=== PATIENT | female | born 1960 | race Caucasian/White ===

== ENCOUNTER 2019-06-15 10:21 | Emergency (ER) | payer OTHER, SELFPAY ==
[2019-06-15] VITALS (8 sets, daily range): BP systolic 140–217; BP diastolic 68–104; PULSE 61–79; RESP 14–23; TEMP 36.7; O2SAT 97–100
--- NOTE | 2019-06-15 10:33 | DI.RAD.S_ITS ---
PROCEDURE: XR CHEST 1V INDICATIONS: chest pain TECHNIQUE: One view of the chest was acquired. COMPARISON: None. FINDINGS: Surgical changes and devices: None. Lungs and pleura: Lungs are clear. No pleural effusions or pneumothorax. Mediastinum: Mediastinal contours appear normal. Heart size is normal. Bones and chest wall: No suspicious bony lesions. Overlying soft tissues appear unremarkable. IMPRESSION: Relatively large lung volumes, but this may simply represent an aggressive inspiratory effort. No definite acute disease. Dictated by: Harris Mason M.D. on 06/15/2019 at 11:18 Approved by: Harris Mason M.D. on 06/15/2019 at 11:21
[2019-06-15 11:20] LABS: Add Manual Diff / Slide Review NO; Basophils Absolute Auto 100 /uL (0-100); Basophils Percent Auto 1.2 % (0-2); Eosinophils Absolute Auto 200 /uL (0-450); Eosinophils Percent Auto 3.1 % (2-4); Hemoglobin 14.4 g/dL (12.0-16.0); Lymphocytes Absolute Auto 1400 /uL (1100-4500); Lymphocytes Percent Auto 25.5 % (25-40); Mean Corpuscular HGB Conc 34.3 % (30-36); Mean Corpuscular Hemoglobin 33.4 PG (26-34); Mean Corpuscular Volume 97.2 fL (80-100); Monocytes Absolute Auto 400 /uL (0-900); Monocytes Percent Auto 6.8 % (3-14); Neutrophils Absolute Auto 3400 /uL (1500-7000); Neutrophils Percent Auto 63.4 % (50-75); Platelet Count 293 X10^3/uL (150-400); Red Blood Cell Count 4.33 X10^6/uL (4.0-5.2); White Blood Cell Count 5.3 X10^3/uL (4.5-11.0)
[2019-06-15 11:28] LABS: INR 0.9 (0.9-1.3); Prothrombin Time 10.8 SECONDS (10.1-12.7)
[2019-06-15 11:31] LABS: PTT Partial Thromboplastin Tim 28 SECONDS (26.4-36.2)
[2019-06-15 11:32] LABS: Alanine Aminotransferase 24 IU/L (<35); Albumin 4.8 g/dL (3.5-5.0); Albumin Globulin Ratio 1.7 (1.0-2.8); Alkaline Phosphatase 78 U/L (38-126); Aspartate Aminotransferase 24 IU/L (14-36); BUN Creatinine Ratio 22.1 (6-22); Bilirubin Total 0.5 mg/dL (0.2-1.3); Blood Urea Nitrogen 17 mg/dL (7-17); Calcium 9.7 mg/dL (8.4-10.2); Carbon Dioxide 24 mmol/L (22-32); Chloride 108 mmol/L (98-107); Creatine Kinase 85 U/L (30-135); Estimated Glomerular Filt Rate > 60.0 mL/min (>60); Globulin 2.8 g/dL (1.7-4.1); Glucose 114 mg/dL (70-100); HEMOLYSIS < 15 (0-50); Lipase 43 U/L (23-300); Potassium 3.9 mmol/L (3.4-5.1); Sodium 141 mmol/L (137-145); Total Protein 7.6 g/dL (6.3-8.2)
--- NOTE | 2019-06-15 11:42 | ED.GENADULT ---
HPI - General Adult General Chief complaint: Hypertension Stated complaint: High BP Time Seen by Provider: 06/15/19 10:49 Source: patient Mode of arrival: Ambulatory Limitations: no limitations History of Present Illness HPI narrative: 58-year-old woman presents with complaints of hypertension worse this morning some squeezing chest pressure and when she was out for her walk this morning notice some tingling in her left fingers that did resolve at the end of the walk. She notes that she does have some chronic neck disease and was not particularly surprised by the tingling down the fingers. She states that she and her recently moved to the area, retired and has developed some worsening habits including increasing tobacco and alcohol use. Over the last couple of days she has cut down cigarettes to 3-4 only and has not been drinking any wine at all. She is quite anxious and had seen her new primary care physician last week who wanted her to monitor blood pressures. She has been too anxious to actually do so afraid that she will confirm the diagnosis of hypertension. She notes see she is exquisitely sensitive to all medications Related Data Home Medications Medication Instructions Recorded Confirmed alprazolam [Xanax] 0.5 mg PO BID PRN 06/15/19 06/15/19 Previous Rx's Medication Instructions Recorded metoprolol succinate 12.5 mg PO DAILY #30 tab 06/15/19 Allergies Allergy/AdvReac Type Severity Reaction Status Date / Time No Known Drug Allergies Allergy Verified 06/15/19 11:13 Review of Systems Review of Systems Narrative: She notes that she has gradually increased her alcohol use up to a bottle of wine a day, notes that she is beginning to drink earlier and looking more forward to that 1st drink. She has tried to cut back and over the last couple days has stopped drinking completely a she recognizes signs of high risk screen clancy behaviors. She notes that she had quite a bit of binge drinking when she was younger. Denies ? fever ? cough ? cold ? chills ? dyspnea ? orthopnea ? wheezing ? abdominal pain ? change to bowel or bladder habits ? nausea vomiting ? skin changes ? rashes Patient History Medical History (Updated 06/15/19 @ 14:37 by Emerita Arvizu MD) ADHD (Acute) Anxiety (Acute) Social History Smoking Status: Current every day smoker Smoking Status: Current every day smoker alcohol intake frequency: 0-2 drinks per day Substance Use Type: does not use Exam Narrative Exam Narrative: General: Healthy appearing, in no acute distress. Able to give a complete and coherent history. Well-nourished well-developed HEENT: Moist mucous membranes, normal sclera with reactive pupils, Neck: No JVD, supple Respiratory: Lungs are clear to auscultation, no wheezing no rales no rhonchi. Full and symmetrical air movement Cardiac: Regular rate and rhythm no murmurs no bruits Abdomen: Soft nontender good bowel tones, no flank pain Skin: Warm and dry, no rashes Neurologic: Grossly neurologically intact with no obvious asymmetries or abnormalities Extremities: No trauma, well perfused Psych: Cooperative, appropriate insight and affect Initial Vital Signs Initial Vital Signs: Vital Signs Temperature 98.1 F 06/15/19 10:36 Pulse Rate 72 06/15/19 10:36 Respiratory Rate 18 06/15/19 10:36 Blood Pressure 217/104 H 06/15/19 10:36 Pulse Oximetry 100 06/15/19 10:36 Course Orders Ordered: ED Orders 06/15/19 10:28 EKG-12 Lead Stat 06/15/19 10:33 XR chest 1V Stat 06/15/19 11:15 Complete Blood Count AUTO DIFF Stat Comprehensive Metabolic Panel Stat Lipase Stat Partial Thromboplastin Time Stat Prothrombin Time INR Stat Troponin & CK Cardiac Panel Stat 06/15/19 13:23 Troponin I Stat 06/15/19 13:45 EKG-12 Lead Stat Discontinued Medications Metoprolol Tartrate (Lopressor) 12.5 mg PO NOW ONE Stop: 06/15/19 12:12 Last Admin: 06/15/19 12:35 Dose: 12.5 mg Documented by: CRISTINE Vital Signs Vital signs: Vital Signs - 8 hr 06/15/19 10:36 06/15/19 11:00 06/15/19 12:00 Temperature 98.1 F Pulse Rate 72 78 79 Respiratory Rate 18 23 21 Blood Pressure 217/104 H Blood Pressure [Left Arm] 170/89 H 152/68 H Pulse Oximetry 100 97 06/15/19 12:38 06/15/19 13:21 06/15/19 13:48 Temperature Pulse Rate 77 65 63 Respiratory Rate 18 23 21 Blood Pressure Blood Pressure [Left Arm] 146/79 H 145/77 H 151/92 H Pulse Oximetry 99 98 97 06/15/19 14:16 Temperature Pulse Rate 61 Respiratory Rate 14 Blood Pressure Blood Pressure [Left Arm] 158/102 H Pulse Oximetry 97 Medical Decision Making Medical Records Medical records reviewed: Yes I reviewed the patient's medical records. Lab Data Lab results reviewed: Yes I reviewed the patient's lab results. Result diagrams: 06/15/19 11:15 06/15/19 11:15 Labs: Lab Results 06/15/19 06/15/19 06/15/19 Range/Units 11:15 11:15 11:15 WBC 5.3 (4.5-11.0) X10^3/uL RBC 4.33 (4.0-5.2) X10^6/uL Hgb 14.4 (12.0-16.0) g/dL Hct 42.0 (36-46) % MCV 97.2 (80-100) fL MCH 33.4 (26-34) PG MCHC 34.3 (30-36) % RDW 12.0 (11.6-14.8) % Plt Count 293 (150-400) X10^3/uL Neut % (Auto) 63.4 (50-75) % Lymph % (Auto) 25.5 (25-40) % Sac % (Auto) 6.8 (3-14) % Eos % (Auto) 3.1 (2-4) % Baso % (Auto) 1.2 (0-2) % Neut # (Auto) 3400 (8898-2293) /uL Lymph # (Auto) 1400 (5603-3102) /uL Sac # (Auto) 400 (0-900) /uL Eos # (Auto) 200 (0-450) /uL Baso # (Auto) 100 (0-100) /uL PT 10.8 (10.1-12.7) SECONDS INR 0.9 (0.9-1.3) APTT 28 (26.4-36.2) SECONDS Sodium 141 (137-145) mmol/L Potassium 3.9 (3.4-5.1) mmol/L Chloride 108 H (98-107) mmol/L Carbon Dioxide 24 (22-32) mmol/L BUN 17 (7-17) mg/dL Creatinine 0.77 (0.52-1.04) mg/dL Estimated GFR > 60.0 (>60) mL/min BUN/Creatinine Ratio 22.1 H (6-22) Glucose 114 H (70-100) mg/dL Calcium 9.7 (8.4-10.2) mg/dL Total Bilirubin 0.5 (0.2-1.3) mg/dL AST 24 (14-36) IU/L ALT 24 (<35) IU/L Alkaline Phosphatase 78 (38-126) U/L Total Creatine Kinase 85 (30-135) U/L CK-MB (CK-2) TNP CK-MB (CK-2) Rel Index TNP Troponin I < 0.012 (0.01-0.034) ng/mL Total Protein 7.6 (6.3-8.2) g/dL Albumin 4.8 (3.5-5.0) g/dL Globulin 2.8 (1.7-4.1) g/dL Albumin/Globulin Ratio 1.7 (1.0-2.8) Lipase 43 (23-300) U/L /16/ Range/Units 13:23 WBC (4.5-11.0) X10^3/uL RBC (4.0-5.2) X10^6/uL Hgb (12.0-16.0) g/dL Hct (36-46) % MCV (80-100) fL MCH (26-34) PG MCHC (30-36) % RDW (11.6-14.8) % Plt Count (150-400) X10^3/uL Neut % (Auto) (50-75) % Lymph % (Auto) (25-40) % Sac % (Auto) (3-14) % Eos % (Auto) (2-4) % Baso % (Auto) (0-2) % Neut # (Auto) (3104-5632) /uL Lymph # (Auto) (5639-9840) /uL Sac # (Auto) (0-900) /uL Eos # (Auto) (0-450) /uL Baso # (Auto) (0-100) /uL PT (10.1-12.7) SECONDS INR (0.9-1.3) APTT (26.4-36.2) SECONDS Sodium (137-145) mmol/L Potassium (3.4-5.1) mmol/L Chloride (98-107) mmol/L Carbon Dioxide (22-32) mmol/L BUN (7-17) mg/dL Creatinine (0.52-1.04) mg/dL Estimated GFR (>60) mL/min BUN/Creatinine Ratio (6-22) Glucose (70-100) mg/dL Calcium (8.4-10.2) mg/dL Total Bilirubin (0.2-1.3) mg/dL AST (14-36) IU/L ALT (<35) IU/L Alkaline Phosphatase (38-126) U/L Total Creatine Kinase (30-135) U/L CK-MB (CK-2) CK-MB (CK-2) Rel Index Troponin I < 0.012 (0.01-0.034) ng/mL Total Protein (6.3-8.2) g/dL Albumin (3.5-5.0) g/dL Globulin (1.7-4.1) g/dL Albumin/Globulin Ratio (1.0-2.8) Lipase (23-300) U/L Imaging Data Chest x-ray: Radiologist's Impression: IMPRESSION: Relatively large lung volumes, but this may simply represent an aggressive inspiratory effort. No definite acute disease. Dictated by: Harris Mason M.D. on 06/15/2019 at 11:18 ECG Data Attestation: I personally reviewed and interpreted this ECG as follows: Interpretation: Normal sinus rhythm at a rate of [address] depression lateral/ inferior EKG 2. With blood pressure down nicely time 14 13: Sinus rhythm at a rate of 67. Inferior lateral ST depressions have resolved. [facility] Narrative Medical decision making narrative: Initial tropes and repeat are unremarkable. EKG initially suggested some ST depression inferolaterally. Blood pressures come down with 12.5 mg of metoprolol. I believe that her high blood pressure is actually a diagnosis for her and complicated by her anxiety, increased drinking and tobacco abuse. She stopped drinking working diligently on tobacco continues to exercise regularly and follow a healthy diet. Will ask her to follow-up with her primary care physician regarding high blood pressure and the recently started 12.5 mg of metoprolol at HS as the initial dose made her sleepy No evidence of acute coronary syndrome at this time. She does have a family history of heart disease and in discussion with her primary care physician it may be appropriate to do additional outpatient risk stratification testing regarding her baseline cardiac status Discharge Plan Departure Patient Disposition: Home Clinical Impression: Anxiety, Heart palpitations Hypertension Qualifiers: Hypertension type: essential hypertension Qualified Code(s): I10 - Essential (primary) hypertension Instructions: DI for High Blood Pressure Activity Restrictions/Additional Instructions: Thank you for coming in today Your blood pressure was quite high and with that you were having some symptoms and some minor EKG changes. Your blood pressure is still higher than I would like to see it lower. Your EKGs do suggest that your heart also functions better when your blood pressure is lower. We did test for heart attack and heart attack like syndromes and your negative today. It will make sense to follow-up with your new primary care provider, I am going to suggest that you start metoprolol 12.5 mg at bedtime (this is a very small starting dose and since it made you sleepy, taking it at nighttime make sense) I have spoken with Mei Ross, she would like to see your for a follow up apt at 3:20 on 06/16, [facility]. If you have new or worsening symptoms please feel free to return to the emergency department. Good luck with your no smoking status and at least 3 months of complete alcohol abstinence! Prescriptions: New metoprolol succinate 25 mg tablet extended release 24 hr 12.5 mg PO DAILY Qty: 30 RF: 0 No Action alprazolam [Xanax] 0.5 mg Tablet 0.5 mg PO BID PRN (Reason: Anxiety) RF: 0 Referrals: Mei Ross PA-C [Primary Care Provider] -
[2019-06-15 12:02] LABS: Troponin I < 0.012 ng/mL (0.01-0.034)
[2019-06-15] MEDS: METOPROLOL IR 25 MG TABLET 12.5 MG PO (12:35)
[2019-06-15 14:16] LABS: Troponin I < 0.012 ng/mL (0.01-0.034)
== END 2019-06-15 15:27 | disposition home or self-care (01) ==
PROVIDERS: Emergency Provider Emergency Medicine; PCP Student in an Organized Health Care Education/Training Program
DX: F41.9 Anxiety disorder, unspecified (principal); R00.2 Palpitations; I10 Essential (primary) hypertension; F90.9 Attention-deficit hyperactivity disorder, unspecified type
CPT/HCPCS: 36415; 71045; 80053; 82550; 83690; 84484; 85025; 85610; 85730; 93005; 99284

== ENCOUNTER → 2019-07-23 08:13 | Outpatient (CLI) | payer OTHER, SELFPAY ==
--- NOTE | 2019-07-23 | DI.NM.S_ITS ---
PROCEDURE: NM REMI PERF SPECT REST & STR Rest and exercise myocardial perfusion SPECT with gated imaging and ejection fraction RADIOPHARMACEUTICAL: 25.8 mCi Tc-99m sestamibi IV at rest and 25.1 mCi Tc-99m sestamibi IV at peak exercise. A two day-protocol was performed. INDICATIONS: Other chest pain TECHNIQUE: Radiopharmaceutical was injected at peak stress test, and also at rest. SPECT images were obtained. SPECT myocardial perfusion images were displayed in short axis, horizontal long axis, and vertical long axis views. Gated images were reviewed using [email or web address] software. COMPARISON: None. CARDIAC STRESS: A standard Frederic treadmill exercise tolerance test was performed by the patient under the supervision of an attending staff. The patient exercised for 8 minutes and 47 seconds; functional aerobic impairment (DARION) is -23%. Hemodynamic data: There is normal blood pressure and heart rate response to exercise stress. Patient achieved 87% of maximum predicted heart rate at peak exercise. Symptoms: Patient denied chest pain during exercise. EKG: No diagnostic EKG changes of ischemia; no ectopy. FINDINGS: Raw data: There is good myocardial labeling by radiotracer. No significant motion artifacts. [id number] ratio is 0.36 (normal is less than 0.38 for sestamibi tracer, and less than 0.50 for thallium tracer). Left ventricle function: Gated images demonstrate normal left ventricle wall thickening. No segmental wall motion abnormality. No transient ischemic dilation; TID is 1.03 (normal less than 1.3). The left ventricle resting end-diastolic volume is 67 mL. Left ventricle stress ejection fraction is 72%; normal values are above 45%. Myocardial perfusion: There is normal distribution of activity in the left and right ventricular myocardium. No fixed or reversible perfusion defects. IMPRESSION: Low risk, normal treadmill nuclear stress test. 1) No perfusion evidence of ischemia or infarction. 2) Normal left ventricular size, wall motion, and systolic function (EF post stress 72%). 3) No ECG evidence of ischemia. 4) No angina during the study. 5) Good exercise capacity (10.1METs, DARION -23%). Target heart rate achieved. Appropriate blood pressure response to exercise. 6) No prior nuclear stress test available for comparison. Dictated by: Jose Manuel Jernigan MD on 07/24/2019 at 13:05 Approved by: Jose Manuel Jernigan MD on 07/24/2019 at 13:08
--- NOTE | 2019-07-23 09:31 | PM.TREADMILL ---
Cardiac Stress Test Report Referral & Results Date Patient Seen: 07/23/19 Time Patient Seen: 09:31 Requesting provider: Mei Ross Indication: other chestpain Rest ECG: sinus rhythm Procedure Note: Standard Frederic protocol, 8:47, 8.8 METS Good exercise capacity, DARION -23% Hypertensive at baseline; normal hemodynamic response to exercise No chest pain or anginal symptoms Non significant ST changes ; no ectopy Impression: Normal exercise stress test Nuclear images pending Please note: Actual ECG tracings can be found in the PACS system.
== END ==
PROVIDERS: PCP Student in an Organized Health Care Education/Training Program; Referring Provider Student in an Organized Health Care Education/Training Program; Visit Provider Student in an Organized Health Care Education/Training Program
DX: R07.89 Other chest pain (principal)
CPT/HCPCS: 78452; 93016; 93017; 93018; A9502

== ENCOUNTER → 2020-07-05 11:40 | Outpatient (CLI) | payer OTHER, SELFPAY ==
--- NOTE | 2020-07-05 | DI.RAD.S_ITS ---
PROCEDURE: XR LUMBAR SPINE 2-3V INDICATIONS: LOW BACK PAIN TECHNIQUE: 3 views of the lumbar spine were acquired. COMPARISON: None. FINDINGS: Bones: 5 [id number] vertebrae are present. There is normal bony alignment. No vertebral body compression fractures. No suspicious bony lesions. Soft tissues: Overlying bowel gas pattern is normal. No suspicious soft tissue calcifications. IMPRESSION: Normal for age, source of current low back pain symptoms is not seen. Dictated by: Harris Mason M.D. on 07/05/2020 at 12:46 Approved by: Harris Mason M.D. on 07/05/2020 at 12:47
== END ==
PROVIDERS: PCP Student in an Organized Health Care Education/Training Program; Referring Provider Student in an Organized Health Care Education/Training Program; Visit Provider Student in an Organized Health Care Education/Training Program
DX: M54.5 Low back pain (principal)
CPT/HCPCS: 72100

== ENCOUNTER 2022-01-02 20:32 | Emergency (ER) | payer OTHER, SELFPAY ==
[2022-01-02 20:40] VITALS: BP 151/83; PULSE 88; RESP 17; TEMP 36.5; O2SAT 97; BMI 20.3
[2022-01-02 21:31] LABS: Add Manual Diff / Slide Review NO; Basophils Absolute Auto 0 /uL (0-100); Basophils Percent Auto 0.4 % (0-2); Eosinophils Absolute Auto 200 /uL (0-450); Eosinophils Percent Auto 1.9 % (2-4); Hematocrit 38.8 % (36-46); Hemoglobin 13.5 g/dL (12.0-16.0); Lymphocytes Absolute Auto 1500 /uL (1100-4500); Lymphocytes Percent Auto 13.8 % (25-40); Mean Corpuscular HGB Conc 34.8 % (30-36); Mean Corpuscular Hemoglobin 34.1 PG (26-34); Mean Corpuscular Volume 97.9 fL (80-100); Monocytes Absolute Auto 700 /uL (0-900); Monocytes Percent Auto 6.5 % (3-14); Neutrophils Absolute Auto 8100 /uL (1500-7000); Neutrophils Percent Auto 77.4 % (50-75); Platelet Count 272 X10^3/uL (150-400); Red Blood Cell Count 3.96 X10^6/uL (4.0-5.2); Red Cell Distribution Width 11.9 % (11.6-14.8); White Blood Cell Count 10.5 X10^3/uL (4.5-11.0)
--- NOTE | 2022-01-02 21:39 | DI.CT.S_ITS ---
PROCEDURE: CT ABDOMEN PELVIS W CON INDICATIONS: ab pain with nausea TECHNIQUE: After the administration of IV contrast, axial sections were acquired from the lung bases to the pubic symphysis. Coronal and sagittal reformats were performed. For radiation dose reduction, the following was used: automated exposure control, adjustment of mA and/or kV according to patient size. COMPARISON: None. FINDINGS: Image quality: Excellent. Lung bases: Unremarkable. Heart: Heart is normal in size. ABDOMEN: Liver: No mass lesion. Gallbladder: Within normal limits without calcified gallstones. Biliary ducts: No biliary ductal dilatation. Pancreas: Unremarkable. Spleen: Normal in size. Adrenal Glands: No adrenal nodules. Kidneys and Ureters: No hydronephrosis. Stomach and Bowel: Stomach and small bowel loops are normal in caliber and wall thickness. The appendix is normal in appearance. There is colonic diverticulosis with associated diverticular and segmental colonic wall thickening in the sigmoid colon as well associated pericolonic fat stranding and small amount of adjacent free fluid consistent with acute diverticulitis. No discrete diverticular abscess or macroscopic free air. Mild pericolonic fat stranding extends to the adjacent uterus and bladder without a discrete fistula identified Peritoneum: There is a small amount nonspecific free fluid in the pelvis. No free air. Ventral Wall: No hernia. Abdominal Nodes: No retroperitoneal or mesenteric adenopathy by size criteria. Vessels: Aorta and inferior vena cava are normal in size. PELVIS: Pelvic Organs: Unremarkable. Bladder: Unremarkable. Pelvic Nodes: No enlarged lymph nodes. Miscellaneous: No inguinal hernias are seen. Bones: Visualized osseous structures demonstrate no suspicious focal lesions. IMPRESSION: 1. Sigmoid diverticulitis without evidence of diverticular abscess or macroscopic free air. 2. Peridiverticular fat stranding extends to the uterus and bladder without a discrete fistula identified. Recommend clinical correlation and follow-up. Dictated by: Osmani Batista M.D. on 01/02/2022 at 23:16 Approved by: Osmani Batista M.D. on 01/02/2022 at 23:20
[2022-01-02 21:45] LABS: Alanine Aminotransferase 22 IU/L (<35); Albumin 4.4 g/dL (3.5-5.0); Albumin Globulin Ratio 1.6 (1.0-2.8); Alkaline Phosphatase 57 U/L (38-126); Aspartate Aminotransferase 31 IU/L (14-36); Bilirubin Total 0.9 mg/dL (0.2-1.3); Blood Urea Nitrogen 11 mg/dL (7-17); Carbon Dioxide 29 mmol/L (22-32); Chloride 101 mmol/L (98-107); Estimated Glomerular Filt Rate > 60 mL/min (>60); Globulin 2.8 g/dL (1.7-4.1); Glucose 118 mg/dL (70-100); HEMOLYSIS 22 (0-50); Lipase 28 U/L (23-300); Potassium 3.7 mmol/L (3.4-5.1); Sodium 137 mmol/L (137-145); Total Protein 7.2 g/dL (6.3-8.2)
[2022-01-02 21:59] LABS: Lactate (Lactic Acid) 0.7 mmol/L (0.7-2.1)
[2022-01-02] MEDS: SODIUM CHLORIDE 0.9% 1,000 ML 1000 ML IV (22:05)
[2022-01-02] MEDS: KETOROLAC 30 MG/ML VIAL 15 MG IV (22:08)
[2022-01-02 23:15] VITALS: BP 132/72; PULSE 78; RESP 20; O2SAT 98
--- NOTE | 2022-01-02 23:23 | ED_ITS ---
HPI - Abdominal Pain General Chief Complaint: Abdominal Pain Stated Complaint: severe abd pain Time Seen by Provider: 01/02/22 21:39 Source: patient Mode of arrival: Ambulatory History of Present Illness HPI narrative: Patient is a 61-year-old female without past medical history presenting today with lower abdominal pain. She says it started around 1:00 a.m. it has persisted. She feels like she is having difficulty with bowel movements and passing gas. No prior abdominal surgeries. She occasionally feels nauseous but no vomiting. No chest pain palpitations or shortness of breath. She has no painful or frequent urination. Pain Consistency: constant Severity: moderate Quality: cramping and stabbing Radiation: none Related Data Home Medications Medication Instructions Recorded Confirmed alprazolam 0.5 mg tablet (Xanax) 0.5 mg PO BID PRN Anxiety 06/15/19 06/27/20 Previous Rx's Medication Instructions Recorded metoprolol succinate 25 mg 12.5 mg PO DAILY #30 tabs 06/15/19 tablet,extended release 24 hr ciprofloxacin HCl 500 mg tablet 500 mg PO BID #20 tabs 01/02/22 (Cipro) metronidazole 500 mg tablet 500 mg PO Q8H 10 days #30 tabs 01/02/22 Allergies Allergy/AdvReac Type Severity Reaction Status Date / Time codeine AdvReac Mild makes her Verified 06/27/20 12:46 nervous Review of Systems Review of Systems Narrative: GENERAL: Denies chills, fatigue, malaise, fever, sweats, travel HEENT: Denies sinus pain, ear pain, sore throat, difficulty swallowing, neck pain RESPIRATORY: Denies dyspnea, cough, wheezing, hemoptysis, sputum. CARDIOVASCULAR: Denies chest pain, palpitations, orthopnea, edema GASTROINTESTINAL: see HPI : Denies dysuria, frequency, incontinence, hematuria, urinary retention, flank pain. MUSCULOSKELETAL: Denies weakness, joint pain, or bony pain SKIN: No rash, no erythema, no pruritus NEUROLOGIC: Denies weakness, dizziness, headache, numbness, change in speech, confusion PSYCHIATRIC: No concerning psychosocial issues. 12 point review of systems is negative except for those stated above and HPI Patient History Medical History ADHD Anxiety Social History (Reviewed 01/02/22 @ 23:24 by CORNELL Hilton Smoking Status: Current every day smoker Smoking Status: Current every day smoker alcohol intake frequency: 0-2 drinks per day Substance Use Type: does not use Exam Initial Vital Signs Initial Vital Signs: Vital Signs Temperature 97.7 F 01/02/22 20:40 Pulse Rate 88 01/02/22 20:40 Respiratory Rate 17 01/02/22 20:40 Blood Pressure 151/83 H 01/02/22 20:40 Pulse Oximetry 97 01/02/22 20:40 Oxygen Delivery Method 01/02/22 20:40 GENERAL: Alert 61-year-old female appears uncomfortable HEENT: Head atraumatic,EOMI, pupils reactive, face symmetric, moist mucous membranes CARDIOVASCULAR: Regular rate and rhythm without murmurs, rubs or gallops. RESPIRATORY: Breath sounds equal bilaterally, no wheezes rales or rhonchi. ABDOMEN: Soft, lower abdominal pain no guarding no rebound no significant distension : No CVA tenderness EXTREMITIES: Normal range of motion, no clubbing or edema. Neurovascularly intact NEUROLOGICAL: Alert and oriented x4.Normal gait and speech. SKIN: Warm, dry, no laceration, no petechiae, no rashes or lesions. Course Orders Ordered: ED Orders 01/02/22 21:05 Complete Blood Count AUTO DIFF Stat Comprehensive Metabolic Panel Stat Lactate (Lactic Acid) Stat Lipase Stat 01/02/22 21:39 CT abdomen pelvis w con Stat Discontinued Medications Hydromorphone HCl (Hydromorphone 0.5 Mg Inj) 0.5 mg IV NOW ONE Stop: 01/02/22 21:40 Last Admin: 01/02/22 21:58 Dose: Not Given Documented By: JOB Sodium Chloride (Normal Saline 0.9%) 1,000 mls @ 1,000 mls/hr IV BOLUS ONE Stop: 01/02/22 22:38 Last Infusion: 01/02/22 23:03 Dose: 0 mls/hr Documented By: Admin: 01/02/22 22:05 Dose: 1,000 mls/hr Documented By: JOB Ketorolac Tromethamine (Ketorolac 30 Mg/Ml Vial) 15 mg IV NOW ONE Stop: 01/02/22 22:08 Last Admin: 01/02/22 22:08 Dose: 15 mg Documented By: JOB Levofloxacin (Levofloxacin 250 Mg Tablet) 750 mg PO NOW ONE Stop: 01/02/22 23:40 Last Admin: 01/02/22 23:55 Dose: 750 mg Documented By: ARLENE Metronidazole (Metronidazole 500 Mg Tablet) 500 mg PO NOW ONE Stop: 01/02/22 23:40 Last Admin: 01/02/22 23:55 Dose: 500 mg Documented By: ARLENE Morphine Sulfate (Morphine 2 Mg/Ml Inj) 2 mg IV NOW ONE Stop: 01/02/22 21:49 Last Admin: 01/02/22 23:45 Dose: Not Given Documented By: VIKAS Ondansetron HCl (Ondansetron 4 Mg/2 Ml Inj) 4 mg IV NOW ONE Stop: 01/02/22 21:40 Last Admin: 01/02/22 23:46 Dose: Not Given Documented By: VIKAS Vital Signs Vital signs: Vital Signs - 8 hr 01/02/22 23:15 01/02/22 23:24 01/02/22 23:25 Pulse Rate 78 79 Respiratory Rate 20 Blood Pressure 132/72 131/65 Pulse Oximetry 98 98 Oxygen Delivery Method Room Air 01/02/22 23:25 01/02/22 23:30 01/02/22 23:30 Pulse Rate 79 78 Respiratory Rate Blood Pressure 138/70 Pulse Oximetry 97 97 Oxygen Delivery Method MDM - Abdominal Pain Lab Data Result diagrams: 01/02/22 21:05 01/02/22 21:05 Labs: Lab Results 01/02/22 01/02/22 01/02/22 Range/Units 21:05 21:05 21:05 WBC 10.5 (4.5-11.0) X10^3/uL RBC 3.96 L (4.0-5.2) X10^6/uL Hgb 13.5 (12.0-16.0) g/dL Hct 38.8 (36-46) % MCV 97.9 (80-100) fL MCH 34.1 H (26-34) PG MCHC 34.8 (30-36) % RDW 11.9 (11.6-14.8) % Plt Count 272 (150-400) X10^3/uL Neut % (Auto) 77.4 H (50-75) % Lymph % (Auto) 13.8 L (25-40) % [place] % (Auto) 6.5 (3-14) % Eos % (Auto) 1.9 L (2-4) % Baso % (Auto) 0.4 (0-2) % Neut # (Auto) 8100 H (9927-6251) /uL Lymph # (Auto) 1500 (2863-9095) /uL [place] # (Auto) 700 (0-900) /uL Eos # (Auto) 200 (0-450) /uL Baso # (Auto) 0 (0-100) /uL Sodium 137 (137-145) mmol/L Potassium 3.7 (3.4-5.1) mmol/L Chloride 101 (98-107) mmol/L Carbon Dioxide 29 (22-32) mmol/L BUN 11 (7-17) mg/dL Creatinine 0.58 (0.52-1.04) mg/dL Estimated GFR > 60 (>60) mL/min BUN/Creatinine Ratio 19.0 (6-22) Glucose 118 H (70-100) mg/dL Lactate 0.7 (0.7-2.1) mmol/L Calcium 9.0 (8.4-10.2) mg/dL Total Bilirubin 0.9 (0.2-1.3) mg/dL AST 31 (14-36) IU/L ALT 22 (<35) IU/L Alkaline Phosphatase 57 (38-126) U/L Total Protein 7.2 (6.3-8.2) g/dL Albumin 4.4 (3.5-5.0) g/dL Globulin 2.8 (1.7-4.1) g/dL Albumin/Globulin Ratio 1.6 (1.0-2.8) Lipase 28 (23-300) U/L Point of care testing: Urine Dip Bedside Urine Glucose Negative Bedside Urine Bilirubin - Negative Bedside Urine Ketone +/- 5 Urine Specific [place] 1.000 Bedside Urine Occult Blood - Negative Bedside Urine pH 6 Bedside Urine Protein - Negative Bedside Urine Urobilinogen - Negative Bedside Urine Nitrite - Negative Bedside Urine Leukocytes + [address] scan - abdomen/pelvis: Radiologist's Impression: Katherine Cárdenas MR#: [id number] : 1960 Acct:[id number] Age/Sex: 61 / F Date of Service: 01/02/22 Loc: ED Accession Number: [id number] ?? Procedure: CT abdomen pelvis w con Ordering Provider: Serenity Foster D.O. PROCEDURE:? CT ABDOMEN PELVIS W CON ? INDICATIONS:? ab pain with nausea ? TECHNIQUE:? After the administration of IV contrast, axial sections were acquired from the lung bases to the pubic symphysis.? Coronal and sagittal reformats were performed.? For radiation dose reduction, the following was used:? automated exposure control, adjustment of mA and/or kV according to patient size. ? COMPARISON:? None. ? FINDINGS:? Image quality:? Excellent.? ? Lung bases:? Unremarkable.? ? Heart:? Heart is normal in size. ? ? ABDOMEN: Liver:? No mass lesion. Gallbladder:? Within normal limits without calcified gallstones.? ? Biliary ducts:? No biliary ductal dilatation.? ? Pancreas:? Unremarkable.? ? Spleen:? Normal in size.? ? Adrenal Glands:? No adrenal nodules.? ? Kidneys and Ureters:? No hydronephrosis.? ? ? Stomach and Bowel:? Stomach and small bowel loops are normal in caliber and wall thickness.? The appendix is normal in appearance.? There is colonic diverticulosis with associated diverticular and segmental colonic wall thickening in the sigmoid colon as well associated pericolonic fat stranding and small amount of adjacent free fluid consistent with acute diverticulitis.? No discrete diverticular abscess or macroscopic free air.? Mild pericolonic fat stranding extends to the adjacent uterus and bladder without a discrete fistula identified? Peritoneum:? There is a small amount nonspecific free fluid in the pelvis.? No free air.? ? ? Ventral Wall: ? No hernia.? Abdominal Nodes:? No retroperitoneal or mesenteric adenopathy by size criteria.? Vessels:? Aorta and inferior vena cava are normal in size.? ? PELVIS: Pelvic Organs:? Unremarkable.? ? Bladder:? Unremarkable.? ? Pelvic Nodes: No enlarged lymph nodes.? Miscellaneous: No inguinal hernias are seen. ? ? ? Bones:? Visualized osseous structures demonstrate no suspicious focal lesions. ? IMPRESSION:? ? 1. Sigmoid diverticulitis without evidence of diverticular abscess or macroscopic free air. ? 2. Peridiverticular fat stranding extends to the uterus and bladder without a discrete fistula identified.? Recommend clinical correlation and follow-up.? ? ? Dictated by: Osmani Batista M.D. on 01/02/2022 at 23:16 ?? MDM Narrative Medical decision making narrative: Patient is complaining of lower abdominal pain severe but no significant distention. Blood work is overall reassuring no significant leukocytosis or elevated lactate. CT is positive for diverticulitis without complication. No sign of ischemic colon. As patient is offered multiple pain medications however she is hesitant to try any secondary to significant reactions. She said she had some hallucinations on naproxen but has no problem taking ibuprofen. He is given a dose Toradol in the ED. at this time no indication to stay in the hospital given a 1st dose of antibiotics here in the ED Discharge Plan Departure Patient Disposition: Home Clinical Impression: Diverticulitis Instructions: DI for Diverticulitis Activity Restrictions/Additional Instructions: *You have been diagnosed with diverticulitis *What to do: Have diverticulitis as she has her to feel better antibiotic *Continue to take medications as directed Tylenol 1000 mg every 8 hours if needed for nphd-xv-bglytasp Ibuprofen 600 mg every 6 hours if needed for tgly-gm-nqboremr pain Cipro 500 mg twice a day for 10 days Flagyl 500 mg 3 times a day for 10 days *Follow up with your primary care provider in 2-3 days or call [phone] *Return to ER if you should have increasing pain bloody stool vomiting, or any new, worsening or concerning symptoms Prescriptions: New ciprofloxacin HCl [Cipro] 500 mg tablet 500 mg PO BID Qty: 20 0RF metronidazole 500 mg tablet 500 mg PO Q8H 10 Days Qty: 30 0RF No Action alprazolam [Xanax] 0.5 mg Tablet 0.5 mg PO BID PRN (Reason: Anxiety) metoprolol succinate 25 mg tablet extended release 24 hr 12.5 mg PO DAILY Qty: 30 0RF Referrals: Mei Ross PA-C [Primary Care Provider] - Visit Report Forms: Patient Portal/API
[2022-01-02 23:24] VITALS: PULSE 79; O2SAT 98
[2022-01-02 23:25] VITALS: BP 131/65; PULSE 79; O2SAT 97
[2022-01-02 23:30] VITALS: BP 138/70; PULSE 78; O2SAT 97
[2022-01-02] MEDS: levoFLOXacin 250 MG TABLET 750 MG PO (23:55)
[2022-01-02] MEDS: metroNIDAZOLE 500 MG TABLET PO (23:55)
== END 2022-01-03 00:10 | disposition home or self-care (01) ==
PROVIDERS: Emergency Provider Emergency Medicine; PCP Student in an Organized Health Care Education/Training Program
DX: K57.92 Diverticulitis of intestine, part unspecified, without perforation or abscess without bleeding (principal); R11.0 Nausea
CPT/HCPCS: 36415; 74177; 80053; 81003; 83605; 83690; 85025; 96361; 96374; 99284; J1885; Q9967

== ENCOUNTER 2022-02-02 15:24 | Emergency (ER) | payer OTHER, SELFPAY ==
[2022-02-02 15:48] VITALS: BP 176/87; PULSE 78; RESP 16; TEMP 36.8; O2SAT 98; BMI 19.3
--- NOTE | 2022-02-02 16:12 | ED.ABDPAIN ---
HPI - Abdominal Pain General Chief Complaint: Abdominal Pain Stated Complaint: Possible Appe Time Seen by Provider: 02/02/22 15:58 Source: patient Mode of arrival: Ambulatory History of Present Illness HPI narrative: Patient is a 61-year-old healthy female history of anxiety hypertension and diverticulitis presents today with right lower quadrant pain. She says it radiates to her back center for about 1-2 days. She had a severe episode of diverticulitis last month which resolved. She said the pain this time is definitely not as bad. However she was referred here by her PCP for rule out of appendicitis. She says last time she had pain both left and right and this time it is only right. She denies any hematuria nausea or vomiting. She has not had anything for pain. She describes it more of a dull ache. She was constipated a couple days ago which is extremely unlike her she took many mngg-kzk-uhcopgg laxatives and finally had a bowel movement. Related Data Home Medications Medication Instructions Recorded Confirmed alprazolam 0.5 mg tablet (Xanax) 0.5 mg PO BID PRN Anxiety 06/15/19 06/27/20 Previous Rx's Medication Instructions Recorded metoprolol succinate 25 mg 12.5 mg PO DAILY #30 tabs 06/15/19 tablet,extended release 24 hr ciprofloxacin HCl 500 mg tablet 500 mg PO BID #20 tabs 01/02/22 (Cipro) amoxicillin 875 mg-potassium 1 tab PO BID #20 tabs 02/02/22 clavulanate 125 mg tablet fluconazole 200 mg tablet 200 mg PO DAILY #1 tab 02/02/22 (Diflucan) Allergies Allergy/AdvReac Type Severity Reaction Status Date / Time codeine AdvReac Mild makes her Verified 06/27/20 12:46 nervous Review of Systems Review of Systems Narrative: GENERAL: Denies chills, fatigue, malaise, fever, sweats, travel HEENT: Denies sinus pain, ear pain, sore throat, difficulty swallowing, neck pain RESPIRATORY: Denies dyspnea, cough, wheezing, hemoptysis, sputum. CARDIOVASCULAR: Denies chest pain, palpitations, orthopnea, edema GASTROINTESTINAL: See HPI : Denies dysuria, frequency, incontinence, hematuria, urinary retention, flank pain. MUSCULOSKELETAL: Denies weakness, joint pain, or bony pain SKIN: No rash, no erythema, no pruritus NEUROLOGIC: Denies weakness, dizziness, headache, numbness, change in speech, confusion PSYCHIATRIC: No concerning psychosocial issues. 12 point review of systems is negative except for those stated above and HPI Patient History Medical History ADHD Anxiety Social History Smoking Status: Current every day smoker Smoking Status: Current every day smoker tobacco type: cigarettes alcohol intake frequency: 0-2 drinks per day Substance Use Type: does not use Exam Initial Vital Signs Initial Vital Signs: Vital Signs Temperature 98.3 F 02/02/22 15:48 Pulse Rate 78 02/02/22 15:48 Respiratory Rate 16 02/02/22 15:48 Blood Pressure 176/87 H 02/02/22 15:48 Pulse Oximetry 98 02/02/22 15:48 Oxygen Delivery Method 02/02/22 15:48 GENERAL: Alert 61-year-old female and in no acute distress. HEENT: Head atraumatic,EOMI, pupils reactive, face symmetric, moist mucous membranes CARDIOVASCULAR: Regular rate and rhythm without murmurs, rubs or gallops. RESPIRATORY: Breath sounds equal bilaterally, no wheezes rales or rhonchi. ABDOMEN: Soft, mild right lower quadrant pain : No CVA tenderness EXTREMITIES: Normal range of motion, no clubbing or edema. Neurovascularly intact NEUROLOGICAL: Alert and oriented x4.Normal gait and speech. SKIN: Warm, dry, no laceration, no petechiae, no rashes or lesions. Course Orders Ordered: ED Orders 02/02/22 16:13 CT abdomen pelvis w con Stat 02/02/22 16:25 Complete Blood Count AUTO DIFF Stat Comprehensive Metabolic Panel Stat Lipase Stat Vital Signs Vital signs: Vital Signs - 8 hr 02/02/22 15:48 Temperature 98.3 F Pulse Rate 78 Respiratory Rate 16 Blood Pressure 176/87 H Pulse Oximetry 98 Oxygen Delivery Method Room Air MDM - Abdominal Pain Lab Data Result diagrams: 02/02/22 16:25 02/02/22 16:25 Labs: Lab Results 02/02/22 02/02/22 Range/Units 16:25 16:25 WBC 6.5 (4.5-11.0) X10^3/uL RBC 3.91 L (4.0-5.2) X10^6/uL Hgb 13.2 (12.0-16.0) g/dL Hct 37.3 (36-46) % MCV 95.5 (80-100) fL MCH 33.7 (26-34) PG MCHC 35.3 (30-36) % RDW 11.9 (11.6-14.8) % Plt Count 272 (150-400) X10^3/uL Neut % (Auto) 52.7 (50-75) % Lymph % (Auto) 36.1 (25-40) % [place] % (Auto) 6.3 (3-14) % Eos % (Auto) 4.1 H (2-4) % Baso % (Auto) 0.8 (0-2) % Neut # (Auto) 3400 (8731-1389) /uL Lymph # (Auto) 2300 (3901-9619) /uL [place] # (Auto) 400 (0-900) /uL Eos # (Auto) 300 (0-450) /uL Baso # (Auto) 100 (0-100) /uL Sodium 138 (137-145) mmol/L Potassium 4.0 (3.4-5.1) mmol/L Chloride 104 (98-107) mmol/L Carbon Dioxide 24 (22-32) mmol/L BUN 17 (7-17) mg/dL Creatinine 0.67 (0.52-1.04) mg/dL Estimated GFR > 60 (>60) mL/min BUN/Creatinine Ratio 25.4 H (6-22) Glucose 88 (70-100) mg/dL Calcium 9.2 (8.4-10.2) mg/dL Total Bilirubin 0.6 (0.2-1.3) mg/dL AST 30 (14-36) IU/L ALT 35 H (<35) IU/L Alkaline Phosphatase 54 (38-126) U/L Total Protein 7.3 (6.3-8.2) g/dL Albumin 4.5 (3.5-5.0) g/dL Globulin 2.8 (1.7-4.1) g/dL Albumin/Globulin Ratio 1.6 (1.0-2.8) Lipase 49 (23-300) U/L Imaging Data CT scan - abdomen/pelvis: Radiologist's Impression: Signed Patient: Katherine Cárdenas MR#: [id number] : 1960 Acct:[id number] Age/Sex: 61 / F Date of Service: 02/02/22 Loc: ED Accession Number: [id number] ?? Procedure: CT abdomen pelvis w con Ordering Provider: Serenity Foster D.O. PROCEDURE:? CT ABDOMEN PELVIS W CON ? INDICATIONS:? rlq pain recent diverticulitis ? TECHNIQUE:? After the administration of intravenous contrast, axial sections acquired from the lung bases to the pubic symphysis.? Coronal and sagittal reformats were performed.? For radiation dose reduction, the following was used:? automated exposure control, adjustment of mA and/or kV according to patient size.? ? COMPARISON:? [facility], CT, CT ABDOMEN PELVIS W CON, 01/02/2022, 21:59. ? FINDINGS:? Image quality:? Excellent ? Lower chest:? Unremarkable ? Solid organs:? Liver is unremarkable.? Gallbladder is unremarkable.? No biliary ductal dilation.? No pancreatic ductal dilation.? No splenomegaly.? No adrenal nodules.? Subcentimeter lesions are too small to characterize.? No hydronephrosis.? ? Vessels and lymph nodes:? The main portal vein is patent.? No lymphadenopathy by size criteria. ? Bowel and peritoneum:? No bowel obstruction.? No pathologic ascites.? Colonic diverticulosis.? Chronic wall thickening of the sigmoid colon with decreased, but persistent inflammatory changes compared to December.? No convincing inflammation elsewhere.? Normal appendix. ? Body wall:? Small fat containing umbilical hernia. ? Pelvis:? Bladder is unremarkable.? Unchanged appearance of the reproductive organs.? Decreased free fluid in the pelvis. ? Bones:? No acute or suspicious osseous abnormality. ? ? IMPRESSION:? Imaging findings compatible with chronic diverticulitis in the sigmoid colon.? Compared to December, inflammatory changes decreased.? Correlate with history of any screening colonoscopy.? The appendix is normal.? No drainable abscess identified.? ? ? Dictated by: Jackson Machado M.D. on 02/02/2022 at 17:01 ? ? Approved by: Jackson Machado M.D. on 02/02/2022 at 17:08? MDM Narrative Medical decision making narrative: The patient has some mild right lower quadrant pain she has no leukocytosis she is not requiring any pain medications here in the ED. CT shows probable chronic diverticulitis. At this time I told her to hold off on antibiotics. No sign of acute infection or complication. Recommended bowel rest with low-fiber diet is and pain control. If pain worsens then she can start antibiotics. She did not on fluoroquinolone and Flagyl it gave her severe yeast infection last time. She would actually like to start antibiotics because the pain has worsened in the last 24 hours but is not nearly as severe as it was previously. We agree to give her prescription and to hold off in till pain gets worse. Appendicitis has been ruled out by CT differential also includes ovarian cyst ovarian torsion, kidney stone, perforation Discharge Plan Departure Patient Disposition: Home Clinical Impression: Diverticulitis large intestine Instructions: DI for Diverticulitis Activity Restrictions/Additional Instructions: *You have been diagnosed with diverticulitis *What to do: Your blood work today is overall reassuring. Your CT scan today shows chronic diverticulitis. At this time I would hold off antibiotics unless her pain is getting significantly worse. I recommend a low-fiber diet until your pain has improved. Be sure your staying hydrated. *Continue to take medications as directed Ibuprofen 600 mg every 6 hours if needed for wixn-lc-fgcczrxs pain Tylenol 1000 mg every 6 hours if needed for szuf-ty-fbfhxozr pain Augmentin 875 mg twice a day for 7 days Diflucan 200 mg x 1 after the antibiotic *Follow up with your primary care provider in 2-3 days or call [phone] *Return to ER if you should have increasing pain bloody stool fever or any new, worsening or concerning symptoms Prescriptions: New amoxicillin-pot clavulanate 875-125 mg tablet 1 tab PO BID Qty: 20 0RF fluconazole [Diflucan] 200 mg tablet 200 mg PO DAILY Qty: 1 0RF No Action alprazolam [Xanax] 0.5 mg Tablet 0.5 mg PO BID PRN (Reason: Anxiety) metoprolol succinate 25 mg tablet extended release 24 hr 12.5 mg PO DAILY Qty: 30 0RF ciprofloxacin HCl [Cipro] 500 mg tablet 500 mg PO BID Qty: 20 0RF Referrals: Mei Ross PA-C [Primary Care Provider] - Visit Report Forms: Patient Portal/API
--- NOTE | 2022-02-02 16:13 | DI.CT.S_ITS ---
PROCEDURE: CT ABDOMEN PELVIS W CON INDICATIONS: rlq pain recent diverticulitis TECHNIQUE: After the administration of intravenous contrast, axial sections acquired from the lung bases to the pubic symphysis. Coronal and sagittal reformats were performed. For radiation dose reduction, the following was used: automated exposure control, adjustment of mA and/or kV according to patient size. COMPARISON: [facility], CT, CT ABDOMEN PELVIS W CON, 01/02/2022, 21:59. FINDINGS: Image quality: Excellent Lower chest: Unremarkable Solid organs: Liver is unremarkable. Gallbladder is unremarkable. No biliary ductal dilation. No pancreatic ductal dilation. No splenomegaly. No adrenal nodules. Subcentimeter lesions are too small to characterize. No hydronephrosis. Vessels and lymph nodes: The main portal vein is patent. No lymphadenopathy by size criteria. Bowel and peritoneum: No bowel obstruction. No pathologic ascites. Colonic diverticulosis. Chronic wall thickening of the sigmoid colon with decreased, but persistent inflammatory changes compared to December. No convincing inflammation elsewhere. Normal appendix. Body wall: Small fat containing umbilical hernia. Pelvis: Bladder is unremarkable. Unchanged appearance of the reproductive organs. Decreased free fluid in the pelvis. Bones: No acute or suspicious osseous abnormality. IMPRESSION: Imaging findings compatible with chronic diverticulitis in the sigmoid colon. Compared to December, inflammatory changes decreased. Correlate with history of any screening colonoscopy. The appendix is normal. No drainable abscess identified. Dictated by: Jackson Machado M.D. on 02/02/2022 at 17:01 Approved by: Jackson Machado M.D. on 02/02/2022 at 17:08
[2022-02-02 16:35] LABS: Add Manual Diff / Slide Review NO; Basophils Absolute Auto 100 /uL (0-100); Basophils Percent Auto 0.8 % (0-2); Eosinophils Absolute Auto 300 /uL (0-450); Eosinophils Percent Auto 4.1 % (2-4); Hematocrit 37.3 % (36-46); Hemoglobin 13.2 g/dL (12.0-16.0); Lymphocytes Absolute Auto 2300 /uL (1100-4500); Lymphocytes Percent Auto 36.1 % (25-40); Mean Corpuscular HGB Conc 35.3 % (30-36); Mean Corpuscular Hemoglobin 33.7 PG (26-34); Mean Corpuscular Volume 95.5 fL (80-100); Monocytes Absolute Auto 400 /uL (0-900); Monocytes Percent Auto 6.3 % (3-14); Neutrophils Absolute Auto 3400 /uL (1500-7000); Neutrophils Percent Auto 52.7 % (50-75); Platelet Count 272 X10^3/uL (150-400); Red Blood Cell Count 3.91 X10^6/uL (4.0-5.2); Red Cell Distribution Width 11.9 % (11.6-14.8); White Blood Cell Count 6.5 X10^3/uL (4.5-11.0)
[2022-02-02 16:49] LABS: Alanine Aminotransferase 35 IU/L (<35); Albumin 4.5 g/dL (3.5-5.0); Albumin Globulin Ratio 1.6 (1.0-2.8); Alkaline Phosphatase 54 U/L (38-126); Aspartate Aminotransferase 30 IU/L (14-36); BUN Creatinine Ratio 25.4 (6-22); Bilirubin Total 0.6 mg/dL (0.2-1.3); Blood Urea Nitrogen 17 mg/dL (7-17); Calcium 9.2 mg/dL (8.4-10.2); Carbon Dioxide 24 mmol/L (22-32); Chloride 104 mmol/L (98-107); Estimated Glomerular Filt Rate > 60 mL/min (>60); Globulin 2.8 g/dL (1.7-4.1); Glucose 88 mg/dL (70-100); HEMOLYSIS < 15 (0-50); Lipase 49 U/L (23-300); Sodium 138 mmol/L (137-145); Total Protein 7.3 g/dL (6.3-8.2)
[2022-02-02 17:02] VITALS: BP 163/89; PULSE 72; O2SAT 97
[2022-02-02 17:30] VITALS: BP 150/93; PULSE 71; O2SAT 96
== END 2022-02-02 18:02 | disposition home or self-care (01) ==
PROVIDERS: Emergency Provider Emergency Medicine; PCP Student in an Organized Health Care Education/Training Program
DX: K57.32 Diverticulitis of large intestine without perforation or abscess without bleeding (principal)
CPT/HCPCS: 36415; 74177; 80053; 83690; 85025; 99283; 99284; Q9967